=== PATIENT | female | born 1970 | race Caucasian/White ===

== ENCOUNTER 2019-10-07 19:37 | Emergency (ER) | payer BC ==
[~2019-10-07] VITALS: Ht 165.1 cm; Wt 68.0 kg
[2019-10-07] MEDS ORDERED: HYDROCODON-ACE1 EAC7 PO (20:31)
[2019-10-07] MEDS ORDERED: IBUPROFEN 800800 M1 PO (20:31)
[2019-10-07 20:47] VITALS: BP 132/69
== END 2019-10-07 20:49 | disposition home or self-care (01) ==
LOC: M.ERS 19:37
DX: S62.616A Displaced fracture of proximal phalanx of right little finger, initial encounter for closed fracture (principal); S93.691A Other sprain of right foot, initial encounter; S80.02XA Contusion of left knee, initial encounter; Z90.710 Acquired absence of both cervix and uterus; Z98.890 Other specified postprocedural states; W18.39XA Other fall on same level, initial encounter; Y93.89 Activity, other specified; Y92.89 Other specified places as the place of occurrence of the external cause; Y99.8 Other external cause status

== ENCOUNTER → 2019-10-11 | Day surgery (SDC) | payer BC ==
[~2019-10-11] MED LIST: HYDROCODON-ACE1 EAC7 PO; IBUPROFEN 800800 M1 PO
--- NOTE | ~2019-10-11 | OP ---
[address] [address] OPERATIVE REPORT Name: JAYNE IQBAL Room: [facility]#: [id number] Admission: 10/11/19 Attend Phys: Rosa Hill DO Discharge: Date of : 66 Report #: [id number] THIS REPORT FOR: //name// cc: Fernando Rowe MD, Bruce D. MD ~ THIS REPORT FOR: //name// CC: Rosa Rowe DICTATED BY: Gigi Alonzo DO DATE OF SERVICE: 10/11/2019 PREOPERATIVE DIAGNOSIS: Right displaced small finger proximal phalanx fracture. POSTOPERATIVE DIAGNOSIS: Right displaced small finger proximal phalanx fracture. PROCEDURES PERFORMED: 1. Closed reduction with percutaneous pin fixation, right small finger proximal phalanx. 2. Physician directed fluoroscopy less than 1 hour. SURGEON: Rosa Hill DO BINDERY PRODUCTION MANAGER: Gigi Alonzo DO ANESTHESIA: General. ESTIMATED BLOOD LOSS: 5 mL. ANTIBIOTICS: 1 gram Ancef IV preoperatively. COMPLICATIONS: None. CONDITION: The patient is stable to PACU. INDICATIONS: The patient is a pleasant 49-year-old female who had a fall on 10/07/2019 landing on her right hand. She was subsequently seen in the Emergency Department for right hand pain, was found to have a fracture of the right small finger proximal phalanx. She was then seen in the Orthopedic Clinic where treatment options were discussed in detail with the patient. On physical exam, she did have a rotational deformity noted to the right small finger with flexion of the digits. We discussed that we would recommend surgical fixation due to the rotational deformity of the finger. The risks, benefits, [address] [address] OPERATIVE REPORT Name: JAYNE IQBAL Room: [facility].#: [id number] Admission: 10/11/19 Attend Phys: Rosa Hill DO Discharge: Date of : 66 Report #: [id number] alternatives and complications were discussed and the patient wished to proceed. DESCRIPTION OF PROCEDURE: The patient was seen and examined in the preoperative holding area. The correct operative extremity was then marked. Written consent was obtained for the procedure. The patient was then transferred to the operating room and placed supine on the operating room table. She was given the benefit of general anesthesia. Right upper extremity was prepped and draped in the usual sterile fashion. Timeout was performed to verify the correct patient, procedure and operative extremity and all were in agreement. The fluoroscopy was then brought in and used to confirm reduction of the fracture. The fracture was able to be reduced with closed methods. While holding the reduction, two 0.045 K-wires were placed across the fracture site. These were confirmed to be in appropriate position on both AP and lateral fluoroscopic images. There was noted to be improved rotational alignment of the digit with flexion of all the digits. The K-wires were then cut to appropriate length and bent. Dressing of Xeroform, 4 x 4's, soft roll and an ulnar gutter splint was then applied. The patient was awakened from anesthesia and transferred to the PACU in stable condition. The patient tolerated the procedure well. There were no complications. By: [id number] Hill DO /nt
== END | disposition home or self-care (01) ==
LOC: M.SUR 08:59
DX: S62.616A Displaced fracture of proximal phalanx of right little finger, initial encounter for closed fracture (principal); W19.XXXA Unspecified fall, initial encounter; Y93.89 Activity, other specified; Y92.89 Other specified places as the place of occurrence of the external cause; Y99.8 Other external cause status; Z88.8 Allergy status to other drugs, medicaments and biological substances